=== PATIENT | female | born 1965 ===

== ENCOUNTER 2024-05-19 15:30 | Outpatient (RCR) | payer MEDICAID, SELFPAY ==
--- NOTE | 2024-05-07 13:47 | PT.OIERPT ---
PT OP Initial Eval Patient Information Outpatient Physical Therapy Treatment Date: 05/07/24 Visit Reasons: gait abnormality Medical Diagnosis: R26.9 Treatment Dx #1: Gait abnormality Start of Care: 05/07/24 Date of Onset: 1.5 yrs Smoking Status Smoking Status: Never smoker Initial Assessment Subjective: Pt is 59 yr old lao speaking female here with her niece for gait abnormality and mobility x1.5 yrs. She has Parkinson-like ssx and walks less than before, about 30 mins. She hasn't fallen and has done 12 visits at another therapy clinic and now ambulates without an assistive device. PMH: HTN, Parkinson's Pt goal: to walk further Objective: 30 second chair to stand: 13 ? Tinetti: 18/28 moderate fall risk ? SL balance: R 3 sec, L 3 sec with LOB on each ? Tandem stance: no sway ? Uneven surface: LOB ? Strength of LE's: ? L hamstrings: 4/5, R 4/5 ? B quads: 4/5 B ankle DF: 4/5 Gait pattern: Parkinsonian C/S: resting position is L rotation Assessment: Pt presents with shuffling gait consistent with Parkinson's. She scored moderate fall rist on Tinetti and average on chair to rise test. Pt requires skilled therapy to meet goals and has fair rehab potential. Short Term and Type Proof Reproducer Goals 1. Ind with HEP 2. Pt will ambulate x45 mins with good balance 3. Improved Tinetti score to at least 23/28 4. Swing foot passes stance foot during gait x50' Treatment Plan 1. Manual therapy ? 2. Therex ? 3. Modalities as indicated, moist heat, ice, estim ? Frequency and Duration: 1-2x a week for 12 visits plus the evaluation Certification Dates: 05/07/24 to 08/06/24 Procedure Charges OP PT Eval Mod Complex 30 minutes: Yes
--- NOTE | 2024-05-14 18:09 | PT.ODAYNRPT ---
PT Outpatient Daily Note OP Daily Note Outpatient Physical Therapy Treatment Date: 05/14/24 Visit Reasons: gait abnormality Subjective: Pt says she has never ridden a bike before Objective: See F/S for therex Assessment: Pt can take longer steps with cues but reverts back to shuffling gait Plan: Continue per POC Length of Time (minutes) of Treatment: 30 Minutes Procedure Charges Therapeutic Exercise 30 minutes: Yes
--- NOTE | 2024-05-19 15:59 | PT.ODAYNRPT ---
PT Outpatient Daily Note OP Daily Note Outpatient Physical Therapy Treatment Date: 05/19/24 Visit Reasons: gait abnormality Subjective: Pt says she uses a cane at home. Objective: See F/S for therex Assessment: Pt can take longer steps with cues but reverts back to shuffling gait. Pt carries the cane when she walks and doesn't use it to support herself. Pt has difficulty flexing the C/S due to mm tone. Plan: Continue per POC Length of Time (minutes) of Treatment: 30 Minutes Procedure Charges Therapeutic Exercise 30 minutes: Yes
== END 2024-05-19 23:59 | disposition home or self-care (01) ==
LOC: CPTX 15:30
PROVIDERS: PCP Internal Medicine; Referring Provider Internal Medicine; Visit Provider Internal Medicine
DX: R26.89 Other abnormalities of gait and mobility (principal); I10 Essential (primary) hypertension
CPT/HCPCS: 97110; 97162

== ENCOUNTER 2024-06-17 09:00 | Outpatient (RCR) | payer MEDICAID, SELFPAY ==
--- NOTE | 2024-05-26 16:39 | PT.ODAYNRPT ---
PT Outpatient Daily Note OP Daily Note Outpatient Physical Therapy Treatment Date: 05/26/24 Visit Reasons: GAIT ABNORMALITY Subjective: Pt says she uses a cane at home. Objective: See F/S for therex Assessment: Pt can take longer steps with cues but reverts back to shuffling gait. Pt carries the cane when she walks and doesn't use it to support herself. Pt has difficulty flexing the C/S due to mm tone. Plan: Continue per POC Length of Time (minutes) of Treatment: 30 Minutes Procedure Charges Therapeutic Exercise 30 minutes: Yes
--- NOTE | 2024-06-02 09:55 | PT.ODAYNRPT ---
PT Outpatient Daily Note OP Daily Note Outpatient Physical Therapy Treatment Date: 06/02/24 Visit Reasons: GAIT ABNORMALITY Subjective: Pt says she uses a cane at home. Objective: See F/S for therex Assessment: Pt can take longer steps with cues but reverts back to shuffling gait. Pt carries the cane when she walks and doesn't use it to support herself. Pt has difficulty understanding directions sometimes. Plan: Continue per POC Length of Time (minutes) of Treatment: 30 Minutes Procedure Charges Therapeutic Exercise 30 minutes: Yes
--- NOTE | 2024-06-10 11:16 | PT.ODAYNRPT ---
PT Outpatient Daily Note OP Daily Note Outpatient Physical Therapy Treatment Date: 06/10/24 Visit Reasons: GAIT ABNORMALITY Subjective: Pt says she uses a cane at home. Objective: See F/S for therex Assessment: Pt can take longer steps with cues but reverts back to shuffling gait. Pt has difficulty remembering to take longer steps and tends to take narrow short fast steps. Plan: Continue per POC Length of Time (minutes) of Treatment: 30 Minutes Procedure Charges Therapeutic Exercise 30 minutes: Yes
--- NOTE | 2024-06-17 13:20 | PT.ODAYNRPT ---
PT Outpatient Daily Note OP Daily Note Outpatient Physical Therapy Treatment Date: 06/17/24 Visit Reasons: GAIT ABNORMALITY Subjective: Pt says she uses a cane at home but not outside the house Objective: See F/S for therex Assessment: Pt can take longer steps with cues but reverts back to shuffling gait and is remembering to take longer steps here Plan: Continue per POC Length of Time (minutes) of Treatment: 30 Minutes Procedure Charges Therapeutic Exercise 30 minutes: Yes
== END 2024-06-18 23:59 | disposition home or self-care (01) ==
LOC: CPTX 09:00
PROVIDERS: PCP Internal Medicine; Referring Provider Internal Medicine; Visit Provider Internal Medicine
DX: R26.9 Unspecified abnormalities of gait and mobility (principal); I10 Essential (primary) hypertension
CPT/HCPCS: 97110

== ENCOUNTER 2024-07-08 09:00 | Outpatient (RCR) | payer MEDICAID, SELFPAY ==
--- NOTE | 2024-06-23 10:58 | PT.ODAYNRPT ---
PT Outpatient Daily Note OP Daily Note Outpatient Physical Therapy Treatment Date: 06/23/24 Visit Reasons: GAIT ABNORMALITY Subjective: Pt says she uses a cane at home but not outside the house Objective: See F/S for therex Assessment: Pt can take longer steps with cues but reverts back to shuffling gait and is remembering to take longer steps here Plan: Continue per POC Length of Time (minutes) of Treatment: 30 Minutes Procedure Charges Therapeutic Exercise 30 minutes: Yes
--- NOTE | 2024-06-30 14:16 | PT.ODAYNRPT ---
PT Outpatient Daily Note OP Daily Note Outpatient Physical Therapy Treatment Date: 06/30/24 Visit Reasons: GAIT ABNORMALITY Subjective: Pt says she is walking better since starting therapy and not using the cane as much. 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 Objective: See F/S for therex Assessment: Pt can take longer steps with cues but reverts back to shuffling gait and is remembering to take longer steps here Plan: Continue per POC Length of Time (minutes) of Treatment: 30 Minutes Procedure Charges Therapeutic Exercise 30 minutes: Yes
--- NOTE | 2024-07-08 13:54 | PT.ODS1RPT ---
PT OP Progress/Discharge Note Date of Service: 07/08/24 Progress Note/DC Note Progress Note/Discharge Note: DC Note Patient Information Visit Reasons: GAIT ABNORMALITY Service Continue Service or Discharge: Discharge Discharge Date: 07/08/24 Status Subjective: Pt says she is walking better since starting therapy and not using the cane as much. Personal Fitness Trainer says pt is walking for exercise 20-30 mins a day with her sister. Objective: See F/S for therex B LE strength: Quads and HS: 4+/5 Tandem stance: no sway Tinetti: Assessment: Pt has attended the eval and 9 Rx sessions with fair progress with therapy goals. Pt can ambulate longer and with good balance with sister. Pt can take longer steps with cues where swing foot passes stance foot but reverts back to shuffling gait. Progress with goals has plateaued. She is walking for exercise with her sister about 20-30 mins which is shy of the 45 minute goal but she is happy with that distance. Plan: D/C Procedure Charges Therapeutic Exercise 30 minutes: Yes
== END 2024-07-19 23:59 | disposition home or self-care (01) ==
LOC: CPTX 09:00
PROVIDERS: PCP Internal Medicine; Referring Provider Internal Medicine; Visit Provider Internal Medicine
DX: R26.9 Unspecified abnormalities of gait and mobility (principal); I10 Essential (primary) hypertension
CPT/HCPCS: 97110